=== PATIENT | male | born 1975 | race African-American/Black ===

== ENCOUNTER 2019-10-03 20:45 | Inpatient (IN) | payer OTHER, MEDICAID ==
[~2019-10-03] VITALS: Ht 203.2 cm; Wt 87.1 kg
[~2019-10-03 20:45] MED LIST: BACL-141 MT; CAPT12.53 MT; CARV3.1242 MT
[2019-10-03] MEDS ORDERED: ACETAMINOPHEN 325MG TABLET PO STA (21:31)
[2019-10-03] MEDS ORDERED: LEVOFLOXACIN 750MG PREMIX 150 ML IV ONE (21:45)
[2019-10-03] MEDS ORDERED: SODIUM CHLORIDE 0.9% 1000ML BAG (SEPSIS BOLUS) IV ONE (21:45)
[2019-10-03] MEDS ORDERED: CEFTRIAXONE 1 G PREMIX 50 ML IV ONE (21:45)
[2019-10-03] MEDS ORDERED: METHYLPREDNISOLONE SOD SUCC 125 MG/2 ML VIAL IV NR (23:30)
[2019-10-03 23:41] LABS: BASOPHILS % 0.1 % (0.0-2.0); EOSINOPHILS % 0.1 % (0.0-5.0); HEMATOCRIT. 40.7 % (42.0-52.0); HEMOGLOBIN. 13.8 g/dL (14.0-18.0); LYMPHOCYTES % 18.6 % (20.0-50.0); MEAN CORPUSCULAR HEMOGLOBIN 30.3 pg (28.0-32.0); MEAN CORPUSCULAR VOLUME 89.3 fL (80.0-94.0); MEAN PLATELET VOLUME 10.3 fl (7.4-10.4); MONOCYTES % 12.7 % (2.0-8.0); NEUTROPHILS % 68.5 % (40.0-76.0); PLATELET 93 x1000/uL (130-400); RED BLOOD CELL COUNT 4.56 mill/uL (4.7-6.1); RED CELL DISTRIBUTION WIDTH 13.6 % (11.6-14.6)
[2019-10-03 23:44] LABS: CHLORIDE 102 mEq/L (98-107)
[2019-10-03 23:46] LABS: PROTHROMBIN TIME 10.8 sec (9.6-11.0)
[2019-10-03] MEDS: IPRATROPIUM BROMIDE (0.02%) 0.5MG/2.5ML NEB HHN NR (23:56)
[2019-10-03] MEDS: ALBUTEROL (0.083%) 2.5MG/3ML NEB HHN NR (23:57)
[2019-10-04] MEDS: ALBUTEROL (0.083%) 2.5MG/3ML NEB HHN NR (00:01)
[2019-10-04] MEDS: IPRATROPIUM BROMIDE (0.02%) 0.5MG/2.5ML NEB HHN NR (00:02)
[2019-10-04 00:13] LABS: CLARITY URINE CLEAR (CLEAR); COLOR URINE DARK YELLOW (YELLOW); KETONES URINE 1+ (NEGATIVE); LEUKOCYTE ESTERASE URINE TRACE (NEGATIVE); NITRITE URINE NEGATIVE (NEGATIVE); OCCULT BLOOD URINE NEGATIVE (NEGATIVE); PH URINE 5.5 (4.5-8.0); PROTEIN URINE TRACE (NEGATIVE); SPECIFIC GRAVITY URINE 1.025 (1.005-1.030)
[2019-10-04 11:35] VITALS: BP 110/65
[2019-10-04 12:00] VITALS: BP 110/65
[2019-10-04] MEDS ORDERED: ONDANSETRON HCL 4MG/2ML INJ IV PRN (12:45)
[2019-10-04] MEDS ORDERED: ACETAMINOPHEN 325MG TABLET PO PRN (12:45)
[2019-10-04] MEDS ORDERED: IPRATROPIUM/ALBUTEROL 0.5-3(2.5)MG/3ML NEB HHN PRN (15:30)
[2019-10-04 16:00] VITALS: BP 115/64
[2019-10-04] MEDS: IPRATROPIUM/ALBUTEROL 0.5-3(2.5)MG/3ML NEB HHN SCH ×2 (16:25→20:13)
[2019-10-04] MEDS ORDERED: AMIO100T4 PO (18:36)
[2019-10-04 20:00] VITALS: BP 108/73
[2019-10-04] MEDS: SODIUM CHLORIDE 0.9% 1,000 ML IV SCH (21:44)
[2019-10-05] VITALS: BP 120/71
[2019-10-05] MEDS: IPRATROPIUM/ALBUTEROL 0.5-3(2.5)MG/3ML NEB HHN SCH ×6 (00:02→20:56)
[2019-10-05] MEDS: ACETYLCYSTEINE 100MG/ML 10% VIAL 4ML INH SCH ×3 (00:02→17:26)
[2019-10-05 04:00] VITALS: BP 102/59
[2019-10-05 07:17] LABS: BASOPHILS % 0.1 % (0.0-2.0); HEMATOCRIT. 40.7 % (42.0-52.0); HEMOGLOBIN. 13.6 g/dL (14.0-18.0); LYMPHOCYTES % 9.4 % (20.0-50.0); MEAN CORPUSCULAR HEMOGLOBIN 30.2 pg (28.0-32.0); MEAN CORPUSCULAR VOLUME 90.2 fL (80.0-94.0); MEAN PLATELET VOLUME 10.6 fl (7.4-10.4); NEUTROPHILS % 78.5 % (40.0-76.0); PLATELET 102 x1000/uL (130-400); RED BLOOD CELL COUNT 4.51 mill/uL (4.7-6.1); RED CELL DISTRIBUTION WIDTH 13.4 % (11.6-14.6)
[2019-10-05 07:20] LABS: CHLORIDE 114 mEq/L (98-107)
[2019-10-05 08:00] VITALS: BP 115/64
[2019-10-05 10:30] LABS: PHOSPHORUS 2.7 mg/dL (2.5-4.9)
[2019-10-05 12:00] VITALS: BP 137/72
[2019-10-05] MEDS ORDERED: AMIODARONE HCL 200 MG TABLET PO NR (13:00)
[2019-10-05] MEDS: LEVOFLOXACIN 500MG PREMIX 100 ML IV SCH (13:29)
[2019-10-05] MEDS ORDERED: CAPTOPRIL 12.5MG TABLET GT SCH (14:00)
[2019-10-05 14:39] LABS: BG BASE EXCESS 1.3 mmol/L (-2.0-2.0); BG CARBOXYHEMOGLOBIN 0.6 % (0.5-1.5); BG DEOXYHEMOGLOBIN 13.9 % (0.0-5.0); BG FRACTION INSPIRED OXYGEN 21; BG METHEMOGLOBIN 0.2 % (0.0-1.5); BG OXYHEMOGLOBIN 85.3 % (94.0-97.0); BG PCO2 36.6 mmHg (35.0-45.0); BG PH 7.452 (7.350-7.450); BG SAMPLE SITE RIGHT RADIAL; BG TOTAL HEMOGLOBIN 13.4 g/dL (12.0-18.0); BG VENT MODE ROOM AIR
[2019-10-05] MEDS: BACLOFEN 10MG TABLET GT SCH ×2 (15:15→21:09)
[2019-10-05] MEDS: SODIUM CHLORIDE 0.9% 1,000 ML IV SCH (15:37)
[2019-10-05 16:00] VITALS: BP 112/72
[2019-10-05 20:00] VITALS: BP 101/58
[2019-10-05] MEDS: CARVEDILOL 3.125 MG TABLET GT SCH (21:00)
[2019-10-05] MEDS: AMIODARONE HCL 200 MG TABLET GT SCH (21:10)
[2019-10-06] VITALS: BP 107/68
[2019-10-06] MEDS: IPRATROPIUM/ALBUTEROL 0.5-3(2.5)MG/3ML NEB HHN SCH ×6 (01:20→20:59)
[2019-10-06] MEDS: ACETYLCYSTEINE 100MG/ML 10% VIAL 4ML INH SCH ×3 (01:21→16:23)
[2019-10-06 04:00] VITALS: BP 93/49
[2019-10-06] MEDS: BACLOFEN 10MG TABLET GT SCH ×3 (05:35→21:33)
[2019-10-06 07:01] LABS: BASOPHILS % 0.1 % (0.0-2.0); HEMATOCRIT. 35.6 % (42.0-52.0); LYMPHOCYTES % 28.1 % (20.0-50.0); MEAN CORPUSCULAR HEMOGLOBIN 30.4 pg (28.0-32.0); MEAN CORPUSCULAR VOLUME 90.3 fL (80.0-94.0); MEAN PLATELET VOLUME 10.6 fl (7.4-10.4); MONOCYTES % 12.8 % (2.0-8.0); PLATELET 99 x1000/uL (130-400); RED BLOOD CELL COUNT 3.94 mill/uL (4.7-6.1); RED CELL DISTRIBUTION WIDTH 13.6 % (11.6-14.6)
[2019-10-06 07:31] LABS: CHLORIDE 116 mEq/L (98-107)
[2019-10-06 08:00] VITALS: BP 97/62
[2019-10-06] MEDS: CARVEDILOL 3.125 MG TABLET GT SCH ×2 (08:45→21:29)
[2019-10-06] MEDS: AMIODARONE HCL 200 MG TABLET GT SCH ×2 (08:46→21:29)
[2019-10-06] MEDS: LEVOFLOXACIN 500MG PREMIX 100 ML IV SCH (10:24)
[2019-10-06 12:00] VITALS: BP 114/73
[2019-10-06] MEDS ORDERED: POTASSIUM CHLORIDE 20MEQ/PACKET GT NR (12:45)
[2019-10-06] MEDS ORDERED: IPRA3AMP9 HHN (15:33)
[2019-10-06 15:45] LABS: BG BASE EXCESS 2.5 mmol/L (-2.0-2.0); BG CARBOXYHEMOGLOBIN 0.4 % (0.5-1.5); BG DEOXYHEMOGLOBIN 2.6 % (0.0-5.0); BG HCO3 ACT 26.6 mmol/L (22.0-26.0); BG METHEMOGLOBIN 0.3 % (0.0-1.5); BG OXYGEN SATURATION 97.4 % (92.0-98.5); BG OXYHEMOGLOBIN 96.7 % (94.0-97.0); BG PCO2 39.5 mmHg (35.0-45.0); BG PH 7.446 (7.350-7.450); BG PO2 93.2 mmHg (75.0-100.0); BG SAMPLE SITE LEFT BRACHIAL; BG TOTAL HEMOGLOBIN 12.8 g/dL (12.0-18.0); BG VENT MODE NASAL CANNULA
[2019-10-06 16:00] VITALS: BP 123/76
[2019-10-06] MEDS: SODIUM CHLORIDE 0.9% 1,000 ML IV SCH (16:19)
[2019-10-06] MEDS ORDERED: LACT10SO MT (18:42)
[2019-10-06 20:00] VITALS: BP 126/82
[2019-10-06] MEDS: LACTULOSE 20G/30ML UDC PO SCH (21:29)
[2019-10-07] VITALS (47 sets, daily range): BP systolic 35–139; BP diastolic 15–92
[2019-10-07] MEDS: IPRATROPIUM/ALBUTEROL 0.5-3(2.5)MG/3ML NEB HHN SCH ×6 (00:53→21:17)
[2019-10-07] MEDS: ACETYLCYSTEINE 100MG/ML 10% VIAL 4ML INH SCH ×3 (00:54→17:53)
[2019-10-07] MEDS ORDERED: VANCOMYCIN 1500MG in DEXTROSE 5% WATER 250ML IV SCH ×2 (01:00→20:00)
[2019-10-07] MEDS: SODIUM CHLORIDE 0.9% 1,000 ML IV SCH ×2 (05:11→15:15)
[2019-10-07] MEDS: BACLOFEN 10MG TABLET GT SCH ×3 (05:13→21:25)
[2019-10-07] MEDS: AMIODARONE HCL 200 MG TABLET GT SCH ×2 (08:48→13:07)
[2019-10-07] MEDS: LACTULOSE 20G/30ML UDC PO SCH ×2 (08:54→21:25)
[2019-10-07] MEDS: CARVEDILOL 3.125 MG TABLET GT SCH ×2 (08:55→21:25)
[2019-10-07] MEDS: LEVOFLOXACIN 500MG PREMIX 100 ML IV SCH (09:01)
[2019-10-07] MEDS ORDERED: POTASSIUM CHLORIDE 20MEQ/PACKET PO NR (12:15)
[2019-10-07 13:12] LABS: BG CARBOXYHEMOGLOBIN 0.9 % (0.5-1.5); BG DEOXYHEMOGLOBIN 6.8 % (0.0-5.0); BG FRACTION INSPIRED OXYGEN 32; BG HCO3 ACT 23.5 mmol/L (22.0-26.0); BG METHEMOGLOBIN 0.2 % (0.0-1.5); BG OXYGEN SATURATION 93.1 % (92.0-98.5); BG OXYHEMOGLOBIN 92.1 % (94.0-97.0); BG PCO2 34.8 mmHg (35.0-45.0); BG PH 7.447 (7.350-7.450); BG PO2 60.8 mmHg (75.0-100.0); BG SAMPLE SITE RIGHT RADIAL; BG TOTAL HEMOGLOBIN 14.9 g/dL (12.0-18.0); BG VENT MODE NASAL CANNULA
[2019-10-07] MEDS ORDERED: VANCOMYCIN 1500MG in DEXTROSE 5% WATER 250ML IV NR (14:30)
[2019-10-07] MEDS: PIPERACILLIN/TAZOBACTAM 3.375 G in DEXT 5% WATER 100 ML IV SCH ×2 (16:00→21:25)
[2019-10-07] MEDS ORDERED: GUAIFENESIN/DM 600MG/30MG ER TAB 12HR PO PRN (18:00)
[2019-10-07 20:02] LABS: CHLORIDE 108 mEq/L (98-107)
[2019-10-07 20:06] LABS: BASOPHILS % 0.2 % (0.0-2.0); EOSINOPHILS % 0.5 % (0.0-5.0); HEMATOCRIT. 43.2 % (42.0-52.0); HEMOGLOBIN. 14.2 g/dL (14.0-18.0); LYMPHOCYTES % 18.5 % (20.0-50.0); MEAN CORPUSCULAR VOLUME 91.2 fL (80.0-94.0); MEAN PLATELET VOLUME 10.8 fl (7.4-10.4); MONOCYTES % 12.3 % (2.0-8.0); NEUTROPHILS % 68.5 % (40.0-76.0); PLATELET 127 x1000/uL (130-400); RED BLOOD CELL COUNT 4.73 mill/uL (4.7-6.1)
[2019-10-07] MEDS: ACETAMINOPHEN 325MG TABLET GT PRN (21:36)
[2019-10-08] VITALS (52 sets, daily range): BP systolic 82–139; BP diastolic 25–90
[2019-10-08] MEDS: VANCOMYCIN 1500MG in DEXTROSE 5% WATER 250ML IV SCH ×3 (00:55→17:03)
[2019-10-08] MEDS: IPRATROPIUM/ALBUTEROL 0.5-3(2.5)MG/3ML NEB HHN SCH ×7 (01:01→23:46)
[2019-10-08] MEDS: ACETYLCYSTEINE 100MG/ML 10% VIAL 4ML INH SCH ×4 (01:02→23:47)
[2019-10-08] MEDS: PIPERACILLIN/TAZOBACTAM 3.375 G in DEXT 5% WATER 100 ML IV SCH ×4 (03:59→21:31)
[2019-10-08] MEDS: BACLOFEN 10MG TABLET GT SCH ×3 (05:20→21:26)
[2019-10-08 05:26] LABS: BASOPHILS % 0.1 % (0.0-2.0); EOSINOPHILS % 0.8 % (0.0-5.0); HEMATOCRIT. 39.6 % (42.0-52.0); HEMOGLOBIN. 13.1 g/dL (14.0-18.0); LYMPHOCYTES % 21.1 % (20.0-50.0); MEAN CORPUSCULAR HEMOGLOBIN 30.2 pg (28.0-32.0); MONOCYTES % 12.1 % (2.0-8.0); NEUTROPHILS % 65.9 % (40.0-76.0); PLATELET 134 x1000/uL (130-400); RED BLOOD CELL COUNT 4.35 mill/uL (4.7-6.1); RED CELL DISTRIBUTION WIDTH 13.6 % (11.6-14.6)
[2019-10-08 05:32] LABS: CHLORIDE 108 mEq/L (98-107)
[2019-10-08] MEDS: CARVEDILOL 3.125 MG TABLET GT SCH ×2 (08:40→21:00)
[2019-10-08] MEDS: LACTULOSE 20G/30ML UDC PO SCH ×2 (08:56→21:26)
[2019-10-08] MEDS: AMIODARONE HCL 200 MG TABLET GT SCH (08:56)
[2019-10-08] MEDS: SODIUM CHLORIDE 0.9% 1,000 ML IV SCH ×2 (15:30→23:30)
[2019-10-08] MEDS: GUAIFENESIN/CODEINE 200-20MG/10ML UDC PO PRN ×2 (17:27→23:20)
[2019-10-08] MEDS: HEPARIN 5000 UNITS/ML VIAL SUBCUT SCH (21:27)
[2019-10-08] MEDS: ACETAMINOPHEN 325MG TABLET GT PRN (21:42)
[2019-10-09] VITALS (59 sets, daily range): BP systolic 85–138; BP diastolic 45–103
[2019-10-09] MEDS: VANCOMYCIN 1500MG in DEXTROSE 5% WATER 250ML IV SCH ×2 (00:42→09:00)
[2019-10-09] MEDS: PIPERACILLIN/TAZOBACTAM 3.375 G in DEXT 5% WATER 100 ML IV SCH ×3 (02:47→14:19)
[2019-10-09] MEDS: IPRATROPIUM/ALBUTEROL 0.5-3(2.5)MG/3ML NEB HHN SCH ×3 (04:17→11:33)
[2019-10-09] MEDS: BACLOFEN 10MG TABLET GT SCH ×2 (05:11→14:13)
[2019-10-09] MEDS: GUAIFENESIN/CODEINE 200-20MG/10ML UDC PO PRN ×2 (05:11→14:19)
[2019-10-09 05:29] LABS: CHLORIDE 112 mEq/L (98-107)
[2019-10-09] MEDS: ACETYLCYSTEINE 100MG/ML 10% VIAL 4ML INH SCH (07:45)
[2019-10-09] MEDS ORDERED: POTASSIUM CHLORIDE 20MEQ/PACKET GT NR (08:00)
[2019-10-09] MEDS: AMIODARONE HCL 200 MG TABLET GT SCH (08:53)
[2019-10-09] MEDS: LACTULOSE 20G/30ML UDC PO SCH (08:53)
[2019-10-09] MEDS: CARVEDILOL 3.125 MG TABLET GT SCH (08:53)
[2019-10-09] MEDS: HEPARIN 5000 UNITS/ML VIAL SUBCUT SCH (09:00)
== END 2019-10-09 14:50 | disposition home or self-care (01) | DRG 871 ==
LOC: ER 20:45 → 7WST 10-04 00:42 → EDBEDREQTM 10-04 01:51 → EDBEDREQSVC 10-04 01:51 → EDBEDREQ 10-04 01:51 → EDBEDREQDT 10-04 01:51 → EDBEDREQ 10-04 01:52 → ENRESERV 10-04 10:35 → MICUNO 10-07 14:06
PROVIDERS: ADMIT Family Medicine Adult Medicine; ATTEND Family Medicine Adult Medicine
DX: A41.01 Sepsis due to Methicillin susceptible Staphylococcus aureus (principal); G82.50 Quadriplegia, unspecified; J96.21 Acute and chronic respiratory failure with hypoxia; J15.211 Pneumonia due to Methicillin susceptible Staphylococcus aureus; G93.1 Anoxic brain damage, not elsewhere classified; I42.0 Dilated cardiomyopathy; I47.2 Ventricular tachycardia; E87.3 Alkalosis; I10 Essential (primary) hypertension; E86.0 Dehydration; I11.0 Hypertensive heart disease with heart failure; I25.5 Ischemic cardiomyopathy; J45.909 Unspecified asthma, uncomplicated; R13.10 Dysphagia, unspecified; I50.9 Heart failure, unspecified; R74.0 Nonspecific elevation of levels of transaminase and lactic acid dehydrogenase [LDH]; J20.9 Acute bronchitis, unspecified; Z74.01 Bed confinement status; Z87.820 Personal history of traumatic brain injury; Z93.1 Gastrostomy status; Z93.3 Colostomy status; Z95.810 Presence of automatic (implantable) cardiac defibrillator; Z79.899 Other long term (current) drug therapy; Z86.74 Personal history of sudden cardiac arrest
CPT/HCPCS: 36415; 36600; 71045; 80048; 80202; 81003; 82375; 82805; 83605; 83735; 83880; 84100; 84145; 84484; 87070; 87077; 87804; 93005; 93306; 96365; 96367; 96375; 99285; A6261; J0696; J1644; J1956; J2543; J2930; J3370; J7030; J7060; J7070; J7608; J7611; J7620; A4315

== ENCOUNTER 2022-08-16 13:26 | Inpatient (IN) | payer OTHER, MEDICAID ==
[~2022-08-16] VITALS: Ht 182.9 cm; Wt 99.5 kg
[2022-08-16] VITALS (9 sets, daily range): BP systolic 106–151; BP diastolic 71–90
[~2022-08-16 13:26] MED LIST changes: +AMIO100T4 PO; -CAPT12.53 MT; +IPRA3AMP9 HHN; +LACT10SO3 MT
[2022-08-16] MEDS ORDERED: PROPOFOL 10MG/ML 100ML 100 ML IV STA (13:56)
[2022-08-16] MEDS ORDERED: SODIUM CHLORIDE 0.9% 1000ML BAG (SEPSIS BOLUS) IV ONE (14:00)
[2022-08-16] MEDS ORDERED: VANCOMYCIN 1G PREMIX 200 ML IV SCH (14:00)
[2022-08-16] MEDS ORDERED: PIPERACILLIN/TAZ 3.375G PREMIX 50 ML IV ONE (14:00)
[2022-08-16 14:49] LABS: HEMATOCRIT. 52.3 % (42.0-52.0); HEMOGLOBIN. 17.6 g/dL (14.0-18.0); MEAN CORPUSCULAR HEMOGLOBIN 31.3 pg (28.0-32.0); MEAN CORPUSCULAR VOLUME 93.3 fL (80.0-94.0); MEAN PLATELET VOLUME 10.7 fl (7.4-10.4); PLATELET 118 x1000/uL (130-400); RED CELL DISTRIBUTION WIDTH 13.7 % (11.6-14.6)
[2022-08-16 14:56] LABS: CHLORIDE 100 mEq/L (98-107)
[2022-08-16 15:08] LABS: INR 1.1; PROTHROMBIN TIME 11.7 sec (9.6-11.0)
[2022-08-16 16:29] LABS: CLARITY URINE CLEAR (CLEAR); COLOR URINE YELLOW (YELLOW); KETONES URINE NEGATIVE (NEGATIVE); LEUKOCYTE ESTERASE URINE NEGATIVE (NEGATIVE); NITRITE URINE NEGATIVE (NEGATIVE); OCCULT BLOOD URINE NEGATIVE (NEGATIVE); PROTEIN URINE NEGATIVE (NEGATIVE); SPECIFIC GRAVITY URINE 1.013 (1.005-1.030)
[2022-08-16 16:47] LABS: BG BASE EXCESS -7.1 mmol/L (-2.0-2.0); BG CARBOXYHEMOGLOBIN 0.1 % (0.5-1.5); BG DEOXYHEMOGLOBIN 1.7 % (0.0-5.0); BG METHEMOGLOBIN 0.5 % (0.0-1.5); BG OXYGEN SATURATION 98.3 % (92.0-98.5); BG OXYHEMOGLOBIN 97.7 % (94.0-97.0); BG PCO2 35.6 mmHg (35.0-45.0); BG PH 7.321 (7.350-7.450); BG PO2 108.7 mmHg (75.0-100.0); BG SAMPLE SITE LEFT FEMORAL; BG TOTAL HEMOGLOBIN 18.3 g/dL (12.0-18.0); BG VENT MODE VENT - AC
[2022-08-16 17:29] LABS: PLATELET ESTIMATE DECREASED
[2022-08-16] MEDS: ENOXAPARIN 40MG/0.4ML SYR SUBCUT SCH (21:00)
[2022-08-16] MEDS ORDERED: VANCOMYCIN 1.25GM PMX (XELLIA) 250 ML IV SCH (22:00)
[2022-08-16] MEDS ORDERED: CARV3.1242 GT (22:52)
[2022-08-16] MEDS ORDERED: BACL-141 GT (22:52)
[2022-08-16] MEDS ORDERED: CAPT12.53 GT (22:52)
[2022-08-16] MEDS ORDERED: AMIO100T4 GT (22:52)
[2022-08-16 23:56] LABS: CREATINE KINASE MB FRACTION 7.1 ng/mL (0.5-3.6)
[2022-08-17] VITALS (90 sets, daily range): BP systolic 87–155; BP diastolic 44–95
[2022-08-17] MEDS: PIPERACILLIN/TAZOBACTAM 3.375 G in DEXTROSE 5% WATER 50 ML IV SCH ×4 (02:00→23:08)
[2022-08-17] MEDS: PROPOFOL 10MG/ML 100ML 100 ML IV PRN ×2 (02:36→16:10)
[2022-08-17] MEDS: VANCOMYCIN 1G PREMIX 200 ML IV SCH ×3 (05:04→21:32)
[2022-08-17 05:43] LABS: BASOPHILS % 0.1 % (0.0-2.0); HEMATOCRIT. 51.8 % (42.0-52.0); HEMOGLOBIN. 17.2 g/dL (14.0-18.0); LYMPHOCYTES % 7.7 % (20.0-50.0); MEAN CORPUSCULAR HEMOGLOBIN 31.3 pg (28.0-32.0); MEAN CORPUSCULAR VOLUME 94.1 fL (80.0-94.0); MONOCYTES % 10.6 % (2.0-8.0); NEUTROPHILS % 81.6 % (40.0-76.0); RED BLOOD CELL COUNT 5.51 mill/uL (4.7-6.1); RED CELL DISTRIBUTION WIDTH 13.8 % (11.6-14.6)
[2022-08-17 06:36] LABS: CHLORIDE 102 mEq/L (98-107)
[2022-08-17 06:51] LABS: CREATINE KINASE 259 IU/L (39-308); CREATINE KINASE MB FRACTION 5.9 ng/mL (0.5-3.6); T4 FREE 2.38 ng/dL (0.76-1.46)
[2022-08-17 07:04] LABS: PLATELET 82 x1000/uL (130-400)
[2022-08-17 09:49] LABS: BG BASE EXCESS -1.8 mmol/L (-2.0-2.0); BG CARBOXYHEMOGLOBIN 0.7 % (0.5-1.5); BG DEOXYHEMOGLOBIN 1.9 % (0.0-5.0); BG HCO3 ACT 20.4 mmol/L (22.0-26.0); BG METHEMOGLOBIN 0.4 % (0.0-1.5); BG OXYGEN SATURATION 98.1 % (92.0-98.5); BG PCO2 29.3 mmHg (35.0-45.0); BG PH 7.461 (7.350-7.450); BG PO2 92.2 mmHg (75.0-100.0); BG SAMPLE SITE RIGHT RADIAL; BG TOTAL HEMOGLOBIN 17.4 g/dL (12.0-18.0); BG VENT MODE VENT - AC
[2022-08-17] MEDS: PANTOPRAZOLE SODIUM 40 MG/VIAL IV SCH (10:04)
[2022-08-17] MEDS: KCL 20MEQ/100ML PREMIX 100 ML IV SCH ×2 (10:10→12:15)
[2022-08-17] MEDS: DEXT 5%/0.45% NACL 1000ML 1,000 ML IV SCH ×2 (13:00→20:13)
[2022-08-17] MEDS ORDERED: IOHEXOL-300 100 ML BOTTLE ONE (14:29)
[2022-08-17] MEDS: BACLOFEN 10MG TABLET GT SCH (17:00)
[2022-08-17] MEDS: CARVEDILOL 3.125 MG TABLET GT SCH (21:00)
[2022-08-17] MEDS ORDERED: CAPTOPRIL 12.5MG TABLET GT SCH (21:00)
[2022-08-18] VITALS (87 sets, daily range): BP systolic 78–162; BP diastolic 28–86
[2022-08-18] MEDS: DEXT 5%/0.45% NACL 1000ML 1,000 ML IV SCH ×3 (04:55→20:59)
[2022-08-18] MEDS: VANCOMYCIN 1G PREMIX 200 ML IV SCH (05:02)
[2022-08-18] MEDS: PROPOFOL 10MG/ML 100ML 100 ML IV PRN ×2 (05:15→15:20)
[2022-08-18 05:56] LABS: BASOPHILS % 0.1 % (0.0-2.0); EOSINOPHILS % 0.1 % (0.0-5.0); HEMATOCRIT. 44.9 % (42.0-52.0); HEMOGLOBIN. 15.2 g/dL (14.0-18.0); LYMPHOCYTES % 9.8 % (20.0-50.0); MEAN CORPUSCULAR HEMOGLOBIN 31.3 pg (28.0-32.0); MEAN CORPUSCULAR VOLUME 92.3 fL (80.0-94.0); MEAN PLATELET VOLUME 10.3 fl (7.4-10.4); MONOCYTES % 8.8 % (2.0-8.0); NEUTROPHILS % 81.2 % (40.0-76.0); PLATELET 66 x1000/uL (130-400); RED BLOOD CELL COUNT 4.87 mill/uL (4.7-6.1); RED CELL DISTRIBUTION WIDTH 13.9 % (11.6-14.6)
[2022-08-18] MEDS: PIPERACILLIN/TAZOBACTAM 3.375 G in DEXTROSE 5% WATER 50 ML IV SCH ×3 (06:00→21:05)
[2022-08-18 06:10] LABS: CHLORIDE 101 mEq/L (98-107)
[2022-08-18] MEDS: LISINOPRIL 5MG TABLET PO SCH (09:00)
[2022-08-18 09:26] LABS: BG BASE EXCESS -0.4 mmol/L (-2.0-2.0); BG FRACTION INSPIRED OXYGEN 40; BG HCO3 ACT 22.2 mmol/L (22.0-26.0); BG METHEMOGLOBIN 0.3 % (0.0-1.5); BG OXYGEN SATURATION 95.9 % (92.0-98.5); BG OXYHEMOGLOBIN 94.7 % (94.0-97.0); BG PCO2 31.3 mmHg (35.0-45.0); BG PH 7.469 (7.350-7.450); BG PO2 71.4 mmHg (75.0-100.0); BG SAMPLE SITE RIGHT RADIAL; BG TOTAL HEMOGLOBIN 15.6 g/dL (12.0-18.0); BG VENT MODE VENT - SIMV
[2022-08-18] MEDS: BACLOFEN 10MG TABLET GT SCH ×3 (10:11→16:01)
[2022-08-18] MEDS: PANTOPRAZOLE SODIUM 40 MG/VIAL IV SCH (10:11)
[2022-08-18] MEDS: CARVEDILOL 3.125 MG TABLET GT SCH ×2 (10:12→20:58)
[2022-08-18] MEDS: VANCOMYCIN 1.25GM PMX (XELLIA) 250 ML IV SCH (20:58)
[2022-08-19] VITALS (100 sets, daily range): BP systolic 84–165; BP diastolic 43–122
[2022-08-19] MEDS: PIPERACILLIN/TAZOBACTAM 3.375 G in DEXTROSE 5% WATER 50 ML IV SCH (05:36)
[2022-08-19] MEDS: PROPOFOL 10MG/ML 100ML 100 ML IV PRN ×3 (05:52→20:05)
[2022-08-19 06:52] LABS: BASOPHILS % 0.1 % (0.0-2.0); EOSINOPHILS % 0.7 % (0.0-5.0); HEMATOCRIT. 39.5 % (42.0-52.0); HEMOGLOBIN. 13.3 g/dL (14.0-18.0); LYMPHOCYTES % 7.8 % (20.0-50.0); MEAN CORPUSCULAR HEMOGLOBIN 31.1 pg (28.0-32.0); MEAN CORPUSCULAR VOLUME 92.5 fL (80.0-94.0); MEAN PLATELET VOLUME 11.3 fl (7.4-10.4); MONOCYTES % 5.9 % (2.0-8.0); NEUTROPHILS % 85.5 % (40.0-76.0); PLATELET 57 x1000/uL (130-400); RED BLOOD CELL COUNT 4.27 mill/uL (4.7-6.1); RED CELL DISTRIBUTION WIDTH 13.5 % (11.6-14.6)
[2022-08-19 07:14] LABS: CHLORIDE 105 mEq/L (98-107)
[2022-08-19] MEDS ORDERED: LIDOCAINE HCL 1% 30ML VIAL (10MG/ML) ONE (08:05)
[2022-08-19 08:29] LABS: BG BASE EXCESS -0.1 mmol/L (-2.0-2.0); BG DEOXYHEMOGLOBIN 4.9 % (0.0-5.0); BG FRACTION INSPIRED OXYGEN 40; BG HCO3 ACT 22.6 mmol/L (22.0-26.0); BG METHEMOGLOBIN 0.3 % (0.0-1.5); BG OXYHEMOGLOBIN 93.8 % (94.0-97.0); BG PCO2 31.3 mmHg (35.0-45.0); BG PH 7.476 (7.350-7.450); BG SAMPLE SITE ALINE; BG TOTAL HEMOGLOBIN 13.6 g/dL (12.0-18.0); BG VENT MODE VENT - AC
[2022-08-19] MEDS: CARVEDILOL 3.125 MG TABLET GT SCH ×3 (09:08→21:00)
[2022-08-19] MEDS: BACLOFEN 10MG TABLET GT SCH ×3 (09:08→17:17)
[2022-08-19] MEDS: PANTOPRAZOLE SODIUM 40 MG/VIAL IV SCH (09:09)
[2022-08-19] MEDS: LISINOPRIL 5MG TABLET PO SCH (09:09)
[2022-08-19] MEDS: KCL 20MEQ/100ML PREMIX 100 ML IV SCH ×2 (09:09→11:03)
[2022-08-19] MEDS: VANCOMYCIN 1.25GM PMX (XELLIA) 250 ML IV SCH ×2 (09:09→20:20)
[2022-08-19] MEDS: CEFEPIME 2,000 MG in DEXT 5% WATER 100 ML IV SCH ×2 (10:13→20:20)
[2022-08-19] MEDS: DEXT 5%/0.45% NACL 1000ML 1,000 ML IV SCH (10:14)
[2022-08-19] MEDS: METRONIDAZOLE 500 MG PREMIX 100 ML IV SCH ×2 (10:58→17:17)
[2022-08-19] MEDS: ACETAMINOPHEN 325MG TABLET PO PRN (17:17)
[2022-08-19] MEDS: MICONAZOLE NITRATE 2% OINT 71GM TOP SCH (20:21)
[2022-08-20] VITALS (67 sets, daily range): BP systolic 76–170; BP diastolic 18–97
[2022-08-20] MEDS: DEXT 5%/0.45% NACL 1000ML 1,000 ML IV SCH ×2 (00:21→15:07)
[2022-08-20] MEDS: PROPOFOL 10MG/ML 100ML 100 ML IV PRN ×2 (00:29→04:48)
[2022-08-20] MEDS: METRONIDAZOLE 500 MG PREMIX 100 ML IV SCH ×3 (01:08→17:09)
[2022-08-20] MEDS: ACETAMINOPHEN 325MG TABLET PO PRN ×2 (05:57→12:22)
[2022-08-20 06:15] LABS: CHLORIDE 107 mEq/L (98-107)
[2022-08-20 06:21] LABS: HEMATOCRIT. 36.1 % (42.0-52.0); HEMOGLOBIN. 12.3 g/dL (14.0-18.0); MEAN CORPUSCULAR HEMOGLOBIN 31.5 pg (28.0-32.0); MEAN CORPUSCULAR VOLUME 92.7 fL (80.0-94.0); MEAN PLATELET VOLUME 10.1 fl (7.4-10.4); PHOSPHORUS 1.3 mg/dL (2.5-4.9); PLATELET 54 x1000/uL (130-400); RED CELL DISTRIBUTION WIDTH 13.8 % (11.6-14.6)
[2022-08-20] MEDS: CARVEDILOL 3.125 MG TABLET GT SCH ×2 (08:34→21:25)
[2022-08-20] MEDS: LISINOPRIL 5MG TABLET PO SCH (08:35)
[2022-08-20] MEDS: CEFEPIME 2,000 MG in DEXT 5% WATER 100 ML IV SCH ×2 (08:45→21:25)
[2022-08-20] MEDS: PANTOPRAZOLE SODIUM 40 MG/VIAL IV SCH (08:45)
[2022-08-20] MEDS: BACLOFEN 10MG TABLET GT SCH ×3 (08:45→17:09)
[2022-08-20] MEDS: KCL 20MEQ/100ML PREMIX 100 ML IV SCH ×2 (08:45→10:52)
[2022-08-20] MEDS: VANCOMYCIN 1.25GM PMX (XELLIA) 250 ML IV SCH ×2 (08:45→21:25)
[2022-08-20] MEDS: MICONAZOLE NITRATE 2% OINT 71GM TOP SCH ×2 (08:46→21:26)
[2022-08-20 09:10] LABS: BG BASE EXCESS -1.1 mmol/L (-2.0-2.0); BG CARBOXYHEMOGLOBIN 0.1 % (0.5-1.5); BG DEOXYHEMOGLOBIN 7.1 % (0.0-5.0); BG FRACTION INSPIRED OXYGEN 40; BG HCO3 ACT 21.2 mmol/L (22.0-26.0); BG OXYGEN SATURATION 92.9 % (92.0-98.5); BG OXYHEMOGLOBIN 92.8 % (94.0-97.0); BG PCO2 28.1 mmHg (35.0-45.0); BG PH 7.495 (7.350-7.450); BG PO2 56.1 mmHg (75.0-100.0); BG SAMPLE SITE RIGHT RADIAL; BG TOTAL HEMOGLOBIN 11.7 g/dL (12.0-18.0); BG VENT MODE VENT - APRV
[2022-08-20] MEDS ORDERED: FENTANYL 2500MCG/250ML PMX 250 ML IV ONE ×2 (09:45→19:30)
[2022-08-20] MEDS ORDERED: FENTANYL 2500MCG/250ML PMX 250 ML IV PRN (09:45)
[2022-08-20 10:37] LABS: PLATELET ESTIMATE DECREASED
[2022-08-20] MEDS: ALBUTEROL (0.083%) 2.5MG/3ML NEB HHN SCH ×3 (11:40→19:54)
[2022-08-20] MEDS ORDERED: POTASSIUM PHOS,M-BASIC-D-BASIC 20 MMOL in DEXT 5% WATER 243.3333 ML IV SCH (16:00)
[2022-08-20] MEDS: ACETYLCYSTEINE 200MG/ML 20% VIAL 4ML INH SCH (17:32)
[2022-08-20] MEDS ORDERED: POTASSIUM PHOS,M-BASIC-D-BASIC 20 MMOL in DEXT 5% WATER 243.3333 ML IV NR ×2 (18:00→18:30)
[2022-08-21] VITALS (76 sets, daily range): BP systolic 79–166; BP diastolic 40–84
[2022-08-21] MEDS: ACETYLCYSTEINE 200MG/ML 20% VIAL 4ML INH SCH ×3 (00:07→16:15)
[2022-08-21] MEDS: ALBUTEROL (0.083%) 2.5MG/3ML NEB HHN SCH ×6 (00:07→22:00)
[2022-08-21] MEDS: DEXT 5%/0.45% NACL 1000ML 1,000 ML IV SCH (04:18)
[2022-08-21] MEDS: METRONIDAZOLE 500 MG PREMIX 100 ML IV SCH ×3 (04:18→17:06)
[2022-08-21 05:56] LABS: BASOPHILS % 0.4 % (0.0-2.0); EOSINOPHILS % 1.4 % (0.0-5.0); HEMATOCRIT. 33.6 % (42.0-52.0); HEMOGLOBIN. 11.3 g/dL (14.0-18.0); LYMPHOCYTES % 8.1 % (20.0-50.0); MEAN CORPUSCULAR HEMOGLOBIN 31.2 pg (28.0-32.0); MONOCYTES % 10.5 % (2.0-8.0); NEUTROPHILS % 79.6 % (40.0-76.0); PLATELET 62 x1000/uL (130-400); RED BLOOD CELL COUNT 3.61 mill/uL (4.7-6.1); RED CELL DISTRIBUTION WIDTH 13.8 % (11.6-14.6)
[2022-08-21 06:07] LABS: CHLORIDE 106 mEq/L (98-107)
[2022-08-21] MEDS ORDERED: PROPOFOL 10MG/ML 100ML 100 ML IV PRN (07:45)
[2022-08-21] MEDS ORDERED: POTASSIUM CHLORIDE INJ 40 MEQ in DEXT 5% WATER 250 ML IV ONE (07:45)
[2022-08-21] MEDS: CARVEDILOL 3.125 MG TABLET GT SCH ×2 (08:12→20:47)
[2022-08-21] MEDS: LISINOPRIL 5MG TABLET PO SCH (08:12)
[2022-08-21] MEDS: BACLOFEN 10MG TABLET GT SCH ×3 (08:12→17:06)
[2022-08-21 08:19] LABS: BG CARBOXYHEMOGLOBIN 1.1 % (0.5-1.5); BG DEOXYHEMOGLOBIN 12.4 % (0.0-5.0); BG FRACTION INSPIRED OXYGEN 40; BG HCO3 ACT 21.3 mmol/L (22.0-26.0); BG METHEMOGLOBIN 0.3 % (0.0-1.5); BG OXYGEN SATURATION 87.4 % (92.0-98.5); BG OXYHEMOGLOBIN 86.2 % (94.0-97.0); BG PCO2 35.9 mmHg (35.0-45.0); BG PH 7.392 (7.350-7.450); BG PO2 47.4 mmHg (75.0-100.0); BG SAMPLE SITE RIGHT RADIAL; BG TOTAL HEMOGLOBIN 12.2 g/dL (12.0-18.0); BG TOTAL RESPIRATORY RATE 35 b/min; BG VENT MODE VENT - AC
[2022-08-21] MEDS: CEFEPIME 2,000 MG in DEXT 5% WATER 100 ML IV SCH ×2 (08:35→20:46)
[2022-08-21] MEDS: KCL 20MEQ/100ML PREMIX 100 ML IV SCH ×2 (08:35→12:24)
[2022-08-21] MEDS: VANCOMYCIN 1.25GM PMX (XELLIA) 250 ML IV SCH (08:35)
[2022-08-21] MEDS: ACETAMINOPHEN 325MG TABLET PO PRN ×3 (08:35→22:12)
[2022-08-21] MEDS: PANTOPRAZOLE SODIUM 40 MG/VIAL IV SCH (08:35)
[2022-08-21] MEDS: MICONAZOLE NITRATE 2% OINT 71GM TOP SCH ×2 (08:36→22:35)
[2022-08-21] MEDS: FENTANYL CITRATE/PF 2,500 MCG in SODIUM CHLORIDE 0.9% 200 ML IV PRN (08:39)
[2022-08-21] MEDS ORDERED: FUROSEMIDE 40MG/4ML VIAL IVP NR ×2 (09:45→20:15)
[2022-08-21 09:54] LABS: INR 1.3; PROTHROMBIN TIME 13.4 sec (9.6-11.0)
[2022-08-21] MEDS: NOREPINEPHRINE 8 MG in DEXT 5% WATER 242 ML IV PRN ×2 (10:48→18:26)
[2022-08-21] MEDS: DEXT 5%/0.45% NACL KCL 20MEQ/L 1,000 ML IV SCH (11:17)
[2022-08-21] MEDS ORDERED: LORAZEPAM 2MG/ML CPJ IV NR (11:45)
[2022-08-21 12:46] LABS: BG BASE EXCESS -2.4 mmol/L (-2.0-2.0); BG CARBOXYHEMOGLOBIN 0.6 % (0.5-1.5); BG FRACTION INSPIRED OXYGEN 100; BG HCO3 ACT 22.1 mmol/L (22.0-26.0); BG METHEMOGLOBIN 0.2 % (0.0-1.5); BG OXYGEN SATURATION 89.9 % (92.0-98.5); BG OXYHEMOGLOBIN 89.2 % (94.0-97.0); BG PCO2 37.5 mmHg (35.0-45.0); BG PH 7.389 (7.350-7.450); BG PO2 53.3 mmHg (75.0-100.0); BG SAMPLE SITE RIGHT RADIAL; BG TOTAL HEMOGLOBIN 11.9 g/dL (12.0-18.0); BG TOTAL RESPIRATORY RATE 40 b/min; BG VENT MODE VENT - AC
[2022-08-21 13:12] LABS: PHOSPHORUS 1.4 mg/dL (2.5-4.9)
[2022-08-21] MEDS: MIDAZOLAM HCL 100 MG in SODIUM CHLORIDE 0.9% 80 ML IV PRN (13:29)
[2022-08-21 17:29] LABS: CHLORIDE 104 mEq/L (98-107)
[2022-08-21] MEDS: METHYLPREDNISOLONE SOD SUCC 40 MG/ML VIAL IV SCH (20:47)
[2022-08-21] MEDS ORDERED: POTASSIUM CHLORIDE INJ 40 MEQ in DEXT 5% WATER 250 ML IV NR (21:30)
[2022-08-21] MEDS ORDERED: VANCOMYCIN 1G PREMIX 200 ML IV SCH (22:00)
[2022-08-21 23:03] LABS: BG BASE EXCESS -2.8 mmol/L (-2.0-2.0); BG CARBOXYHEMOGLOBIN 0.7 % (0.5-1.5); BG DEOXYHEMOGLOBIN 6.7 % (0.0-5.0); BG FRACTION INSPIRED OXYGEN 100; BG HCO3 ACT 21.5 mmol/L (22.0-26.0); BG METHEMOGLOBIN 0.2 % (0.0-1.5); BG OXYGEN SATURATION 93.2 % (92.0-98.5); BG OXYHEMOGLOBIN 92.4 % (94.0-97.0); BG PCO2 35.8 mmHg (35.0-45.0); BG PH 7.396 (7.350-7.450); BG SAMPLE SITE LEFT RADIAL; BG TOTAL HEMOGLOBIN 13.7 g/dL (12.0-18.0); BG TOTAL RESPIRATORY RATE 44 b/min; BG VENT MODE VENT - AC
[2022-08-22] VITALS (97 sets, daily range): BP systolic 77–148; BP diastolic 45–99
[2022-08-22] MEDS: DEXT 5%/0.45% NACL KCL 20MEQ/L 1,000 ML IV SCH ×2 (01:05→20:01)
[2022-08-22] MEDS: FENTANYL CITRATE/PF 2,500 MCG in SODIUM CHLORIDE 0.9% 200 ML IV PRN ×2 (01:06→16:46)
[2022-08-22] MEDS: ACETYLCYSTEINE 200MG/ML 20% VIAL 4ML INH SCH ×3 (01:10→16:51)
[2022-08-22] MEDS: METRONIDAZOLE 500 MG PREMIX 100 ML IV SCH ×3 (02:19→17:59)
[2022-08-22] MEDS: NOREPINEPHRINE 8 MG in DEXT 5% WATER 242 ML IV PRN ×2 (02:20→21:14)
[2022-08-22] MEDS: METHYLPREDNISOLONE SOD SUCC 40 MG/ML VIAL IV SCH ×3 (04:10→20:01)
[2022-08-22] MEDS: ALBUTEROL (0.083%) 2.5MG/3ML NEB HHN SCH ×5 (05:02→19:59)
[2022-08-22 05:56] LABS: HEMATOCRIT. 40.9 % (42.0-52.0); HEMOGLOBIN. 13.4 g/dL (14.0-18.0); MEAN CORPUSCULAR VOLUME 94.5 fL (80.0-94.0); MEAN PLATELET VOLUME 10.1 fl (7.4-10.4); PLATELET 52 x1000/uL (130-400); RED BLOOD CELL COUNT 4.32 mill/uL (4.7-6.1); RED CELL DISTRIBUTION WIDTH 14.2 % (11.6-14.6)
[2022-08-22 06:07] LABS: CHLORIDE 105 mEq/L (98-107)
[2022-08-22] MEDS: CARVEDILOL 3.125 MG TABLET GT SCH ×2 (08:24→20:03)
[2022-08-22] MEDS: LISINOPRIL 5MG TABLET PO SCH (08:24)
[2022-08-22] MEDS ORDERED: POTASSIUM PHOS,M-BASIC-D-BASIC 20 MMOL in DEXT 5% WATER 243.3333 ML IV NR (08:30)
[2022-08-22 08:31] LABS: BG BASE EXCESS 0.4 mmol/L (-2.0-2.0); BG CARBOXYHEMOGLOBIN 0.8 % (0.5-1.5); BG DEOXYHEMOGLOBIN 0.5 % (0.0-5.0); BG FRACTION INSPIRED OXYGEN 100; BG HCO3 ACT 24.7 mmol/L (22.0-26.0); BG METHEMOGLOBIN 0.4 % (0.0-1.5); BG OXYGEN SATURATION 99.5 % (92.0-98.5); BG OXYHEMOGLOBIN 98.3 % (94.0-97.0); BG SAMPLE SITE LEFT BRACHIAL; BG TOTAL HEMOGLOBIN 13.3 g/dL (12.0-18.0); BG TOTAL RESPIRATORY RATE 22 b/min; BG VENT MODE VENT - AC
[2022-08-22 08:33] LABS: PLATELET ESTIMATE MARKEDLY DECREASED
[2022-08-22] MEDS: CEFEPIME 2,000 MG in DEXT 5% WATER 100 ML IV SCH ×2 (09:03→20:01)
[2022-08-22] MEDS: PANTOPRAZOLE SODIUM 40 MG/VIAL IV SCH (09:03)
[2022-08-22] MEDS: MICONAZOLE NITRATE 2% OINT 71GM TOP SCH ×2 (09:04→20:02)
[2022-08-22] MEDS: BACLOFEN 10MG TABLET GT SCH ×3 (09:04→17:59)
[2022-08-22] MEDS ORDERED: SODIUM PHOS M BASIC D BASIC IV SCH (11:00)
[2022-08-22] MEDS ORDERED: WATER IV SCH (11:00)
[2022-08-22] MEDS ORDERED: DEXT IV SCH (11:00)
[2022-08-22] MEDS: MIDAZOLAM HCL 100 MG in SODIUM CHLORIDE 0.9% 80 ML IV PRN (12:01)
[2022-08-22] MEDS ORDERED: FUROSEMIDE 40MG/4ML VIAL IVP NR (12:30)
[2022-08-23] VITALS (99 sets, daily range): BP systolic 81–126; BP diastolic 46–71
[2022-08-23] MEDS: ALBUTEROL (0.083%) 2.5MG/3ML NEB HHN SCH ×7 (00:01→23:46)
[2022-08-23] MEDS: ACETYLCYSTEINE 200MG/ML 20% VIAL 4ML INH SCH ×4 (00:02→23:46)
[2022-08-23] MEDS: METRONIDAZOLE 500 MG PREMIX 100 ML IV SCH ×3 (02:09→17:41)
[2022-08-23] MEDS: METHYLPREDNISOLONE SOD SUCC 40 MG/ML VIAL IV SCH ×3 (04:18→20:10)
[2022-08-23] MEDS: FENTANYL CITRATE/PF 2,500 MCG in SODIUM CHLORIDE 0.9% 200 ML IV PRN ×2 (05:51→16:30)
[2022-08-23 06:53] LABS: CHLORIDE 103 mEq/L (98-107)
[2022-08-23 07:04] LABS: PHOSPHORUS 1.6 mg/dL (2.5-4.9)
[2022-08-23] MEDS ORDERED: WATER IV ONE (08:45)
[2022-08-23] MEDS ORDERED: DEXT 5% IV ONE (08:45)
[2022-08-23] MEDS ORDERED: POTASSIUM PHOS M BASIC D BASIC IV ONE (08:45)
[2022-08-23] MEDS: PANTOPRAZOLE SODIUM 40 MG/VIAL IV SCH (08:46)
[2022-08-23] MEDS: LISINOPRIL 5MG TABLET PO SCH (08:47)
[2022-08-23] MEDS: MICONAZOLE NITRATE 2% OINT 71GM TOP SCH ×2 (08:48→21:27)
[2022-08-23] MEDS: BACLOFEN 10MG TABLET GT SCH ×3 (08:49→17:41)
[2022-08-23] MEDS: CEFEPIME 2,000 MG in DEXT 5% WATER 100 ML IV SCH ×2 (08:49→21:27)
[2022-08-23] MEDS: CARVEDILOL 3.125 MG TABLET GT SCH ×2 (08:49→21:00)
[2022-08-23] MEDS ORDERED: POTASSIUM PHOS,M-BASIC-D-BASIC 30 MMOL in DEXT 5% WATER 500 ML IV NR (10:00)
[2022-08-23 10:18] LABS: BG BASE EXCESS 1.8 mmol/L (-2.0-2.0); BG CARBOXYHEMOGLOBIN 0.2 % (0.5-1.5); BG DEOXYHEMOGLOBIN 0.7 % (0.0-5.0); BG FRACTION INSPIRED OXYGEN 90; BG HCO3 ACT 25.5 mmol/L (22.0-26.0); BG METHEMOGLOBIN 0.3 % (0.0-1.5); BG OXYGEN SATURATION 99.3 % (92.0-98.5); BG OXYHEMOGLOBIN 98.8 % (94.0-97.0); BG PCO2 36.9 mmHg (35.0-45.0); BG PH 7.458 (7.350-7.450); BG PO2 192.9 mmHg (75.0-100.0); BG SAMPLE SITE LEFT BRACHIAL; BG TOTAL HEMOGLOBIN 11.3 g/dL (12.0-18.0); BG VENT MODE VENT - AC
[2022-08-23 10:33] LABS: HEMATOCRIT. 31.6 % (42.0-52.0); HEMOGLOBIN. 10.6 g/dL (14.0-18.0); MEAN CORPUSCULAR VOLUME 92.4 fL (80.0-94.0); MEAN PLATELET VOLUME 11.3 fl (7.4-10.4); PLATELET 74 x1000/uL (130-400); RED BLOOD CELL COUNT 3.42 mill/uL (4.7-6.1); RED CELL DISTRIBUTION WIDTH 13.8 % (11.6-14.6)
[2022-08-23 12:57] LABS: PLATELET ESTIMATE DECREASED
[2022-08-23] MEDS: DEXT 5%/0.45% NACL KCL 20MEQ/L 1,000 ML IV SCH (16:18)
[2022-08-23] MEDS: MIDAZOLAM HCL 100 MG in SODIUM CHLORIDE 0.9% 80 ML IV PRN (16:27)
[2022-08-23] MEDS ORDERED: VANCOMYCIN 1,750 MG in DEXT 5% WATER 500 ML IV NR (20:00)
[2022-08-24] VITALS (94 sets, daily range): BP systolic 91–135; BP diastolic 43–80
[2022-08-24] MEDS: METRONIDAZOLE 500 MG PREMIX 100 ML IV SCH ×3 (02:45→17:34)
[2022-08-24] MEDS: ALBUTEROL (0.083%) 2.5MG/3ML NEB HHN SCH ×5 (03:18→20:04)
[2022-08-24] MEDS: METHYLPREDNISOLONE SOD SUCC 40 MG/ML VIAL IV SCH ×3 (04:36→20:15)
[2022-08-24 04:44] LABS: CHLORIDE 102 mEq/L (98-107)
[2022-08-24 04:47] LABS: HEMATOCRIT 29.7 % (42.0-52.0); HEMOGLOBIN 9.9 g/dL (14.0-18.0); MEAN CORPUSCULAR HEMOGLOBIN 30.8 pg (28.0-32.0); MEAN CORPUSCULAR VOLUME 92.7 fL (80.0-94.0); PLATELET 76 x1000/uL (130-400); RED CELL DISTRIBUTION WIDTH 14.2 % (11.6-14.6)
[2022-08-24 04:55] LABS: PHOSPHORUS 1.2 mg/dL (2.5-4.9)
[2022-08-24] MEDS: ACETYLCYSTEINE 200MG/ML 20% VIAL 4ML INH SCH ×2 (07:58→15:55)
[2022-08-24] MEDS: BACLOFEN 10MG TABLET GT SCH ×3 (08:08→17:34)
[2022-08-24] MEDS: LISINOPRIL 5MG TABLET PO SCH (08:09)
[2022-08-24] MEDS: PANTOPRAZOLE SODIUM 40 MG/VIAL IV SCH (08:09)
[2022-08-24] MEDS: CEFEPIME 2,000 MG in DEXT 5% WATER 100 ML IV SCH ×2 (08:09→21:43)
[2022-08-24] MEDS: MICONAZOLE NITRATE 2% OINT 71GM TOP SCH ×2 (08:10→21:44)
[2022-08-24] MEDS: CARVEDILOL 3.125 MG TABLET GT SCH ×2 (08:10→21:00)
[2022-08-24 08:54] LABS: BG CARBOXYHEMOGLOBIN 0.1 % (0.5-1.5); BG DEOXYHEMOGLOBIN 0.9 % (0.0-5.0); BG FRACTION INSPIRED OXYGEN 80; BG HCO3 ACT 26.9 mmol/L (22.0-26.0); BG METHEMOGLOBIN 0.3 % (0.0-1.5); BG OXYGEN SATURATION 99.1 % (92.0-98.5); BG OXYHEMOGLOBIN 98.7 % (94.0-97.0); BG PCO2 43.3 mmHg (35.0-45.0); BG PH 7.411 (7.350-7.450); BG PO2 186.2 mmHg (75.0-100.0); BG SAMPLE SITE RIGHT RADIAL; BG TOTAL HEMOGLOBIN 11.4 g/dL (12.0-18.0); BG VENT MODE VENT - AC
[2022-08-24] MEDS: VANCOMYCIN 1GM PMX (XELLIA) 200 ML IV SCH ×2 (09:34→20:18)
[2022-08-24] MEDS: FENTANYL CITRATE/PF 2,500 MCG in SODIUM CHLORIDE 0.9% 200 ML IV PRN (09:35)
[2022-08-24] MEDS: DEXT 5%/0.45% NACL KCL 20MEQ/L 1,000 ML IV SCH (12:49)
[2022-08-24] MEDS ORDERED: SODIUM PHOS,M-BASIC-D-BASIC 30 MM in DEXT 5% WATER 500 ML IV NR (16:00)
[2022-08-24] MEDS: NOREPINEPHRINE 8 MG in DEXT 5% WATER 242 ML IV PRN (17:40)
[2022-08-25] VITALS (94 sets, daily range): BP systolic 92–142; BP diastolic 46–78
[2022-08-25] MEDS: ACETYLCYSTEINE 200MG/ML 20% VIAL 4ML INH SCH ×3 (00:27→14:00)
[2022-08-25] MEDS: ALBUTEROL (0.083%) 2.5MG/3ML NEB HHN SCH ×6 (00:28→20:52)
[2022-08-25] MEDS: MIDAZOLAM HCL 100 MG in SODIUM CHLORIDE 0.9% 80 ML IV PRN (02:01)
[2022-08-25] MEDS: METHYLPREDNISOLONE SOD SUCC 40 MG/ML VIAL IV SCH ×3 (04:59→21:30)
[2022-08-25 05:27] LABS: HEMATOCRIT. 29.5 % (42.0-52.0); MEAN CORPUSCULAR HEMOGLOBIN 30.8 pg (28.0-32.0); MEAN PLATELET VOLUME 10.2 fl (7.4-10.4); PLATELET 85 x1000/uL (130-400); RED BLOOD CELL COUNT 3.24 mill/uL (4.7-6.1); RED CELL DISTRIBUTION WIDTH 13.8 % (11.6-14.6)
[2022-08-25] MEDS: FENTANYL CITRATE/PF 2,500 MCG in SODIUM CHLORIDE 0.9% 200 ML IV PRN (05:29)
[2022-08-25 05:34] LABS: CHLORIDE 103 mEq/L (98-107)
[2022-08-25 05:59] LABS: PHOSPHORUS 1.8 mg/dL (2.5-4.9)
[2022-08-25] MEDS: PANTOPRAZOLE SODIUM 40 MG/VIAL IV SCH (08:37)
[2022-08-25] MEDS: DEXT 5%/0.45% NACL KCL 20MEQ/L 1,000 ML IV SCH (08:37)
[2022-08-25] MEDS: MICONAZOLE NITRATE 2% OINT 71GM TOP SCH ×2 (08:38→21:31)
[2022-08-25] MEDS: CARVEDILOL 3.125 MG TABLET GT SCH ×2 (08:39→21:30)
[2022-08-25] MEDS: BACLOFEN 10MG TABLET GT SCH ×3 (08:39→17:24)
[2022-08-25] MEDS: LISINOPRIL 5MG TABLET PO SCH (08:40)
[2022-08-25] MEDS ORDERED: VANCOMYCIN 1G PREMIX 200 ML IV SCH (09:00)
[2022-08-25 09:14] LABS: BG BASE EXCESS 3.5 mmol/L (-2.0-2.0); BG CARBOXYHEMOGLOBIN 0.2 % (0.5-1.5); BG DEOXYHEMOGLOBIN 1.7 % (0.0-5.0); BG FRACTION INSPIRED OXYGEN 40; BG HCO3 ACT 26.5 mmol/L (22.0-26.0); BG METHEMOGLOBIN 0.2 % (0.0-1.5); BG OXYGEN SATURATION 98.3 % (92.0-98.5); BG OXYHEMOGLOBIN 97.9 % (94.0-97.0); BG PCO2 34.6 mmHg (35.0-45.0); BG PH 7.502 (7.350-7.450); BG PO2 106.5 mmHg (75.0-100.0); BG SAMPLE SITE RIGHT RADIAL; BG TOTAL HEMOGLOBIN 11.3 g/dL (12.0-18.0); BG TOTAL RESPIRATORY RATE 10 b/min; BG VENT MODE VENT - AC
[2022-08-25] MEDS ORDERED: POTASSIUM PHOS,M-BASIC-D-BASIC 20 MMOL in DEXT 5% WATER 243.3333 ML IV NR (10:00)
[2022-08-25 10:43] LABS: PLATELET ESTIMATE DECREASED
[2022-08-25] MEDS ORDERED: DIATR MEGLU/DIATRIZOATE SOLN 30ML PEG NR (13:00)
[2022-08-25] MEDS: VANCOMYCIN 1G PREMIX 200 ML IV SCH (15:24)
[2022-08-25] MEDS: METOCLOPRAMIDE HCL 10MG/2ML VIAL IV SCH (17:24)
[2022-08-25 21:10] LABS: FERRITIN 693 ng/mL (22-322)
[2022-08-25 21:18] LABS: VITAMIN B12 SERUM >2000 pg/mL pg/mL (211-911)
[2022-08-26] VITALS (55 sets, daily range): BP systolic 97–145; BP diastolic 54–86
[2022-08-26] MEDS: METOCLOPRAMIDE HCL 10MG/2ML VIAL IV SCH ×4 (00:26→17:41)
[2022-08-26] MEDS: ALBUTEROL (0.083%) 2.5MG/3ML NEB HHN SCH ×6 (00:56→20:55)
[2022-08-26] MEDS: VANCOMYCIN 1G PREMIX 200 ML IV SCH (04:32)
[2022-08-26] MEDS: DEXT 5%/0.45% NACL KCL 20MEQ/L 1,000 ML IV SCH (04:32)
[2022-08-26] MEDS: METHYLPREDNISOLONE SOD SUCC 40 MG/ML VIAL IV SCH ×2 (04:32→13:00)
[2022-08-26 06:06] LABS: HEMATOCRIT. 29.7 % (42.0-52.0); HEMOGLOBIN. 10.1 g/dL (14.0-18.0); MEAN CORPUSCULAR HEMOGLOBIN 30.9 pg (28.0-32.0); MEAN CORPUSCULAR VOLUME 91.2 fL (80.0-94.0); PLATELET 100 x1000/uL (130-400); RED BLOOD CELL COUNT 3.26 mill/uL (4.7-6.1); RED CELL DISTRIBUTION WIDTH 13.6 % (11.6-14.6)
[2022-08-26 06:21] LABS: CHLORIDE 104 mEq/L (98-107)
[2022-08-26 06:40] LABS: PHOSPHORUS 1.9 mg/dL (2.5-4.9)
[2022-08-26 07:25] LABS: NUCLEATED RED BLOOD CELLS 1 /100 WBC; PLATELET ESTIMATE DECREASED
[2022-08-26 08:15] LABS: BG BASE EXCESS 10.4 mmol/L (-2.0-2.0); BG CARBOXYHEMOGLOBIN 0.3 % (0.5-1.5); BG DEOXYHEMOGLOBIN 3.7 % (0.0-5.0); BG FRACTION INSPIRED OXYGEN 60; BG HCO3 ACT 33.6 mmol/L (22.0-26.0); BG METHEMOGLOBIN 0.3 % (0.0-1.5); BG OXYGEN SATURATION 96.3 % (92.0-98.5); BG OXYHEMOGLOBIN 95.7 % (94.0-97.0); BG PCO2 39.5 mmHg (35.0-45.0); BG PH 7.548 (7.350-7.450); BG PO2 78.6 mmHg (75.0-100.0); BG SAMPLE SITE RIGHT RADIAL; BG TOTAL HEMOGLOBIN 11.5 g/dL (12.0-18.0); BG TOTAL RESPIRATORY RATE 20 b/min; BG VENT MODE VENT - AC
[2022-08-26] MEDS: CARVEDILOL 3.125 MG TABLET GT SCH ×2 (08:48→22:12)
[2022-08-26] MEDS: MICONAZOLE NITRATE 2% OINT 71GM TOP SCH ×2 (08:49→22:13)
[2022-08-26] MEDS: LISINOPRIL 5MG TABLET PO SCH (08:49)
[2022-08-26] MEDS: BACLOFEN 10MG TABLET GT SCH ×3 (08:49→17:41)
[2022-08-26] MEDS: NEOMY SULF/BACITRAC ZN/POLY OINT 28GM TOP SCH ×2 (08:49→22:12)
[2022-08-26] MEDS: PANTOPRAZOLE SODIUM 40 MG/VIAL IV SCH (08:49)
[2022-08-26] MEDS ORDERED: FUROSEMIDE 40MG/4ML VIAL IVP NR (09:30)
[2022-08-26] MEDS: METRONIDAZOLE 500 MG PREMIX 100 ML IV SCH ×2 (10:30→17:42)
[2022-08-26] MEDS ORDERED: POTASSIUM PHOS,M-BASIC-D-BASIC 20 MMOL in DEXT 5% WATER 243.3333 ML IV NR (10:30)
[2022-08-26] MEDS: LEVOFLOXACIN 500MG PREMIX 100 ML IV SCH (11:33)
[2022-08-26] MEDS ORDERED: ACETAZOLAMIDE 250MG TABLET PO NR (15:00)
[2022-08-26] MEDS: ENOXAPARIN 40MG/0.4ML SYR SUBCUT SCH (22:12)
[2022-08-27] VITALS (81 sets, daily range): BP systolic 101–153; BP diastolic 53–84
[2022-08-27] MEDS: METOCLOPRAMIDE HCL 10MG/2ML VIAL IV SCH ×4 (00:19→17:48)
[2022-08-27] MEDS: DEXT 5%/0.45% NACL KCL 20MEQ/L 1,000 ML IV SCH (00:19)
[2022-08-27] MEDS: ALBUTEROL (0.083%) 2.5MG/3ML NEB HHN SCH ×6 (00:44→20:57)
[2022-08-27] MEDS: METRONIDAZOLE 500 MG PREMIX 100 ML IV SCH ×3 (02:01→17:48)
[2022-08-27] MEDS: METHYLPREDNISOLONE SOD SUCC 40 MG/ML VIAL IV SCH (05:13)
[2022-08-27 05:48] LABS: HEMATOCRIT. 34.2 % (42.0-52.0); HEMOGLOBIN. 11.3 g/dL (14.0-18.0); MEAN CORPUSCULAR HEMOGLOBIN 30.4 pg (28.0-32.0); MEAN CORPUSCULAR VOLUME 91.5 fL (80.0-94.0); MEAN PLATELET VOLUME 10.2 fl (7.4-10.4); PLATELET 118 x1000/uL (130-400); RED BLOOD CELL COUNT 3.74 mill/uL (4.7-6.1); RED CELL DISTRIBUTION WIDTH 14.2 % (11.6-14.6)
[2022-08-27 06:10] LABS: CHLORIDE 98 mEq/L (98-107)
[2022-08-27 07:57] LABS: NUCLEATED RED BLOOD CELLS 1 /100 WBC; PLATELET ESTIMATE SLIGHTLY DECREASED
[2022-08-27 08:49] LABS: BG BASE EXCESS 3.3 mmol/L (-2.0-2.0); BG CARBOXYHEMOGLOBIN 0.3 % (0.5-1.5); BG DEOXYHEMOGLOBIN 1.3 % (0.0-5.0); BG FRACTION INSPIRED OXYGEN 60; BG HCO3 ACT 26.2 mmol/L (22.0-26.0); BG METHEMOGLOBIN 0.3 % (0.0-1.5); BG OXYGEN SATURATION 98.7 % (92.0-98.5); BG OXYHEMOGLOBIN 98.1 % (94.0-97.0); BG PCO2 34.1 mmHg (35.0-45.0); BG PH 7.503 (7.350-7.450); BG PO2 145.8 mmHg (75.0-100.0); BG SAMPLE SITE RIGHT RADIAL; BG TOTAL HEMOGLOBIN 11.9 g/dL (12.0-18.0); BG VENT MODE VENT - AC
[2022-08-27] MEDS: LISINOPRIL 5MG TABLET PO SCH (08:55)
[2022-08-27] MEDS: CARVEDILOL 3.125 MG TABLET GT SCH ×2 (08:55→21:00)
[2022-08-27] MEDS: BACLOFEN 10MG TABLET GT SCH ×3 (09:18→17:45)
[2022-08-27] MEDS: PANTOPRAZOLE SODIUM 40 MG/VIAL IV SCH (09:18)
[2022-08-27] MEDS: NEOMY SULF/BACITRAC ZN/POLY OINT 28GM TOP SCH ×2 (09:18→20:54)
[2022-08-27] MEDS: MICONAZOLE NITRATE 2% OINT 71GM TOP SCH ×2 (09:19→20:54)
[2022-08-27] MEDS ORDERED: FUROSEMIDE 40MG/4ML VIAL IVP NR (10:15)
[2022-08-27] MEDS: LEVOFLOXACIN 500MG PREMIX 100 ML IV SCH (11:00)
[2022-08-27 11:01] LABS: BG BASE EXCESS 5.4 mmol/L (-2.0-2.0); BG CARBOXYHEMOGLOBIN 0.6 % (0.5-1.5); BG DEOXYHEMOGLOBIN 4.9 % (0.0-5.0); BG FRACTION INSPIRED OXYGEN 40; BG HCO3 ACT 28.6 mmol/L (22.0-26.0); BG METHEMOGLOBIN 0.4 % (0.0-1.5); BG OXYGEN SATURATION 95.1 % (92.0-98.5); BG OXYHEMOGLOBIN 94.1 % (94.0-97.0); BG PH 7.506 (7.350-7.450); BG PO2 66.8 mmHg (75.0-100.0); BG SAMPLE SITE RIGHT RADIAL; BG TOTAL HEMOGLOBIN 12.3 g/dL (12.0-18.0); BG VENT MODE VENT - CPAP
[2022-08-27 13:59] LABS: PHOSPHORUS 1.9 mg/dL (2.5-4.9)
[2022-08-27] MEDS: ENOXAPARIN 40MG/0.4ML SYR SUBCUT SCH (20:54)
[2022-08-28] VITALS (24 sets, daily range): BP systolic 107–132; BP diastolic 55–85
[2022-08-28] MEDS: METOCLOPRAMIDE HCL 10MG/2ML VIAL IV SCH ×4 (01:02→17:22)
[2022-08-28] MEDS: METRONIDAZOLE 500 MG PREMIX 100 ML IV SCH ×3 (01:03→17:24)
[2022-08-28] MEDS: ALBUTEROL (0.083%) 2.5MG/3ML NEB HHN SCH ×6 (01:24→20:09)
[2022-08-28] MEDS: ACETYLCYSTEINE 200MG/ML 20% VIAL 4ML INH SCH ×3 (01:24→16:56)
[2022-08-28] MEDS: METHYLPREDNISOLONE SOD SUCC 40 MG/ML VIAL IV SCH (05:56)
[2022-08-28 05:58] LABS: HEMATOCRIT. 38.5 % (42.0-52.0); MEAN CORPUSCULAR HEMOGLOBIN 30.9 pg (28.0-32.0); MEAN CORPUSCULAR VOLUME 91.9 fL (80.0-94.0); MEAN PLATELET VOLUME 10.4 fl (7.4-10.4); PLATELET 124 x1000/uL (130-400); RED BLOOD CELL COUNT 4.19 mill/uL (4.7-6.1); RED CELL DISTRIBUTION WIDTH 13.6 % (11.6-14.6)
[2022-08-28 06:00] LABS: CHLORIDE 98 mEq/L (98-107)
[2022-08-28 06:08] LABS: PHOSPHORUS 2.3 mg/dL (2.5-4.9)
[2022-08-28 07:02] LABS: NUCLEATED RED BLOOD CELLS 1 /100 WBC; PLATELET ESTIMATE SLIGHTLY DECREASED
[2022-08-28] MEDS ORDERED: SODIUM PHOS,M-BASIC-D-BASIC 20 MM in DEXT 5% WATER 243.3333 ML IV NR (08:30)
[2022-08-28] MEDS ORDERED: ENOXAPARIN 30MG/0.3ML SYR SUBCUT SCH (09:00)
[2022-08-28] MEDS: PANTOPRAZOLE SODIUM 40 MG/VIAL IV SCH (09:02)
[2022-08-28] MEDS: BACLOFEN 10MG TABLET GT SCH ×3 (09:02→17:22)
[2022-08-28] MEDS: LISINOPRIL 5MG TABLET PO SCH (09:02)
[2022-08-28] MEDS: CARVEDILOL 3.125 MG TABLET GT SCH ×2 (09:03→21:46)
[2022-08-28] MEDS: NEOMY SULF/BACITRAC ZN/POLY OINT 28GM TOP SCH ×2 (09:05→21:47)
[2022-08-28] MEDS: MICONAZOLE NITRATE 2% OINT 71GM TOP SCH ×2 (09:06→21:46)
[2022-08-28] MEDS: LEVOFLOXACIN 500MG PREMIX 100 ML IV SCH (10:34)
[2022-08-28] MEDS ORDERED: FLUCONAZOLE 200 MG/100ML BAG 100 ML IV SCH (12:00)
[2022-08-28] MEDS ORDERED: FLUCONAZOLE 200MG/100ML PREMIX IV NR (12:00)
[2022-08-29] VITALS (22 sets, daily range): BP systolic 108–142; BP diastolic 58–89
[2022-08-29] MEDS: METOCLOPRAMIDE HCL 10MG/2ML VIAL IV SCH ×4 (00:04→17:36)
[2022-08-29] MEDS: ALBUTEROL (0.083%) 2.5MG/3ML NEB HHN SCH ×6 (00:12→20:23)
[2022-08-29] MEDS: ACETYLCYSTEINE 200MG/ML 20% VIAL 4ML INH SCH ×3 (00:13→16:27)
[2022-08-29] MEDS: METRONIDAZOLE 500 MG PREMIX 100 ML IV SCH ×3 (01:52→17:37)
[2022-08-29] MEDS: METHYLPREDNISOLONE SOD SUCC 40 MG/ML VIAL IV SCH (05:10)
[2022-08-29 05:54] LABS: HEMATOCRIT. 38.5 % (42.0-52.0); HEMOGLOBIN. 12.9 g/dL (14.0-18.0); MEAN CORPUSCULAR HEMOGLOBIN 30.8 pg (28.0-32.0); MEAN CORPUSCULAR VOLUME 91.6 fL (80.0-94.0); MEAN PLATELET VOLUME 10.6 fl (7.4-10.4); PLATELET 115 x1000/uL (130-400); RED CELL DISTRIBUTION WIDTH 14.1 % (11.6-14.6)
[2022-08-29 06:17] LABS: CHLORIDE 103 mEq/L (98-107)
[2022-08-29 06:35] LABS: PHOSPHORUS 2.3 mg/dL (2.5-4.9)
[2022-08-29] MEDS: BACLOFEN 10MG TABLET GT SCH ×3 (10:13→17:36)
[2022-08-29] MEDS: LISINOPRIL 5MG TABLET PO SCH (10:13)
[2022-08-29] MEDS: CARVEDILOL 3.125 MG TABLET GT SCH ×2 (10:13→21:43)
[2022-08-29] MEDS: PANTOPRAZOLE SODIUM 40 MG/VIAL IV SCH (10:13)
[2022-08-29] MEDS: MICONAZOLE NITRATE 2% OINT 71GM TOP SCH ×2 (10:14→21:43)
[2022-08-29] MEDS: NEOMY SULF/BACITRAC ZN/POLY OINT 28GM TOP SCH ×2 (10:14→21:44)
[2022-08-29] MEDS ORDERED: FLUCONAZOLE 100 MG/50ML BAG 50 ML IV SCH (11:00)
[2022-08-29] MEDS: LEVOFLOXACIN 500MG PREMIX 100 ML IV SCH (13:08)
[2022-08-29] MEDS: FLUCONAZOLE 100MG/50ML in BAG IV SCH (17:37)
[2022-08-29] MEDS ORDERED: SODIUM PHOS,M-BASIC-D-BASIC 20 MM in DEXT 5% WATER 243.3333 ML IV NR (22:00)
[2022-08-30] VITALS (15 sets, daily range): BP systolic 108–156; BP diastolic 56–78
[2022-08-30] MEDS: ACETYLCYSTEINE 200MG/ML 20% VIAL 4ML INH SCH ×4 (00:02→17:19)
[2022-08-30] MEDS: ALBUTEROL (0.083%) 2.5MG/3ML NEB HHN SCH ×6 (00:03→21:07)
[2022-08-30] MEDS: METOCLOPRAMIDE HCL 10MG/2ML VIAL IV SCH ×4 (00:42→19:09)
[2022-08-30] MEDS: METRONIDAZOLE 500 MG PREMIX 100 ML IV SCH ×3 (02:46→18:00)
[2022-08-30 07:43] LABS: CHLORIDE 101 mEq/L (98-107)
[2022-08-30] MEDS: LISINOPRIL 5MG TABLET PO SCH (09:00)
[2022-08-30] MEDS: CARVEDILOL 3.125 MG TABLET GT SCH (09:00)
[2022-08-30] MEDS: PREDNISONE 20MG TABLET PO SCH (09:22)
[2022-08-30] MEDS: PANTOPRAZOLE SODIUM 40 MG/VIAL IV SCH (09:24)
[2022-08-30] MEDS: BACLOFEN 10MG TABLET GT SCH ×3 (09:24→19:09)
[2022-08-30] MEDS: MICONAZOLE NITRATE 2% OINT 71GM TOP SCH (09:25)
[2022-08-30] MEDS: NEOMY SULF/BACITRAC ZN/POLY OINT 28GM TOP SCH (09:25)
[2022-08-30 10:43] LABS: PLATELET ESTIMATE SLIGHTLY DECREASED
[2022-08-30] MEDS: LEVOFLOXACIN 500MG PREMIX 100 ML IV SCH (11:21)
[2022-08-30] MEDS: FLUCONAZOLE 100MG/50ML in BAG IV SCH (11:21)
[2022-08-31] VITALS (18 sets, daily range): BP systolic 101–141; BP diastolic 42–87
[2022-08-31] MEDS: ALBUTEROL (0.083%) 2.5MG/3ML NEB HHN SCH ×5 (00:38→16:39)
[2022-08-31] MEDS: NEOMY SULF/BACITRAC ZN/POLY OINT 28GM TOP SCH ×2 (00:43→10:52)
[2022-08-31] MEDS: MICONAZOLE NITRATE 2% OINT 71GM TOP SCH ×2 (00:44→09:00)
[2022-08-31] MEDS: CARVEDILOL 3.125 MG TABLET GT SCH ×2 (00:45→10:49)
[2022-08-31] MEDS: METOCLOPRAMIDE HCL 10MG/2ML VIAL IV SCH ×4 (00:45→18:12)
[2022-08-31] MEDS: METRONIDAZOLE 500 MG PREMIX 100 ML IV SCH ×2 (01:53→11:16)
[2022-08-31 08:17] LABS: CHLORIDE 102 mEq/L (98-107)
[2022-08-31] MEDS: LISINOPRIL 5MG TABLET PO SCH (09:00)
[2022-08-31] MEDS: ACETYLCYSTEINE 200MG/ML 20% VIAL 4ML INH SCH ×2 (09:18→16:39)
[2022-08-31] MEDS: PREDNISONE 20MG TABLET PO SCH (10:49)
[2022-08-31] MEDS: PANTOPRAZOLE SODIUM 40 MG/VIAL IV SCH (10:49)
[2022-08-31] MEDS: BACLOFEN 10MG TABLET GT SCH ×3 (10:51→18:12)
[2022-08-31] MEDS: LEVOFLOXACIN 500MG PREMIX 100 ML IV SCH (11:16)
[2022-08-31] MEDS: FLUCONAZOLE 100MG/50ML in BAG IV SCH (16:09)
[2022-08-31] MEDS ORDERED: *PATIENT'S OWN MEDICATION STORAGE XX SCH (19:15)
== END 2022-08-31 20:00 | disposition home or self-care (01) | DRG 870 ==
LOC: EDBEDREQSVC 14:12 → ER 14:34 → CVICU 16:39 → EDBEDREQ 16:41 → ENRESERV 19:42 → 5EST 08-29 15:15
PROVIDERS: ADMIT Internal Medicine; ATTEND Internal Medicine
PROC: 5A1955Z Respiratory Ventilation, Greater than 96 Consecutive Hours (ICD-10-PCS; 2022-08-16)
PROC: 0BH17EZ Insertion of Endotracheal Airway into Trachea, Via Natural or Artificial Opening (ICD-10-PCS; 2022-08-16)
PROC: 02HV33Z Insertion of Infusion Device into Superior Vena Cava, Percutaneous Approach (ICD-10-PCS; principal; 2022-08-17)
PROC: B548ZZA Ultrasonography of Superior Vena Cava, Guidance (ICD-10-PCS; 2022-08-17)
PROC: 4B02XSZ Measurement of Cardiac Pacemaker, External Approach (ICD-10-PCS; 2022-08-24)
DX: A41.9 Sepsis, unspecified organism (principal); J69.0 Pneumonitis due to inhalation of food and vomit; I50.23 Acute on chronic systolic (congestive) heart failure; J96.01 Acute respiratory failure with hypoxia; K94.22 Gastrostomy infection; K56.609 Unspecified intestinal obstruction, unspecified as to partial versus complete obstruction; I42.9 Cardiomyopathy, unspecified; E87.20 Acidosis, unspecified; L03.90 Cellulitis, unspecified; D69.6 Thrombocytopenia, unspecified; E87.6 Hypokalemia; E83.39 Other disorders of phosphorus metabolism; K80.20 Calculus of gallbladder without cholecystitis without obstruction; E80.6 Other disorders of bilirubin metabolism; D64.9 Anemia, unspecified; M24.651 Ankylosis, right hip; R74.01 Elevation of levels of liver transaminase levels; R33.8 Other retention of urine; S91.119A Laceration without foreign body of unspecified toe without damage to nail, initial encounter; I11.0 Hypertensive heart disease with heart failure; I07.1 Rheumatic tricuspid insufficiency; Z87.820 Personal history of traumatic brain injury; Z95.828 Presence of other vascular implants and grafts; Z95.810 Presence of automatic (implantable) cardiac defibrillator; Z86.69 Personal history of other diseases of the nervous system and sense organs; X58.XXXA Exposure to other specified factors, initial encounter; Y93.89 Activity, other specified; Y92.89 Other specified places as the place of occurrence of the external cause; Y99.8 Other external cause status
CPT/HCPCS: 31500; 36415; 36600; 71045; 71250; 72170; 74018; 74176; 74177; 76770; 76937; 80048; 80053; 80076; 80202; 81003; 82375; 82550; 82553; 82607; 82728; 82746; 82805; 82977; 83540; 83550; 83605; 83735; 83880; 84100; 84145; 84439; 84443; 84478; 84484; 85025; 85027; 85044; 87070; 87077; 87186; 93005; 93306; 93923; 93970; 94002; 94003; 94640; 99285; A6261; C1725; C1893; C9113; J0692; J1450; J1650; J1940; J1956; J2060; J2250; J2543; J2704; J2765; J2920; J3010; J3370; J3480; J3490; J7030; J7050; J7060; J7512; J7608; Q9963; Q9967; A4315

== ENCOUNTER 2024-07-06 18:03 | Inpatient (IN) | payer OTHER, MEDICAID ==
[~2024-07-06] VITALS: Ht 182.9 cm; Wt 122.9 kg
[~2024-07-06 18:03] MED LIST changes: +AMIO100T4 GT; -AMIO100T4 PO; +BACL-141 GT; -BACL-141 MT; +CAPT12.53 GT; +CARV3.1242 GT; -CARV3.1242 MT
[2024-07-06 21:11] LABS: CLARITY URINE TURBID (CLEAR); COLOR URINE YELLOW (YELLOW); GLUCOSE URINE NEGATIVE (NEGATIVE); KETONES URINE NEGATIVE (NEGATIVE); LEUKOCYTE ESTERASE URINE 1+ (NEGATIVE); NITRITE URINE POSITIVE (NEGATIVE); OCCULT BLOOD URINE NEGATIVE (NEGATIVE); PH URINE >=9.0 (4.5-8.0); PROTEIN URINE 4+ (NEGATIVE); SPECIFIC GRAVITY URINE 1.019 (1.005-1.030)
[2024-07-06 21:28] LABS: TRIPLE PHOSPHATE CRYSTAL URINE 4+ /lpf
[2024-07-06 21:29] LABS: BACTERIA URINE 3+; RBC URINE 0-2 /hpf (0-2); SQUAMOUS EPITHELIAL CELL URINE FEW /lpf (RARE/1+)
[2024-07-06 21:55] LABS: HEMATOCRIT 53.2 % (42.0-52.0); HEMOGLOBIN 17.6 g/dL (14.0-18.0); MEAN CORPUSCULAR HEMOGLOBIN 31.2 pg (28.0-32.0); MEAN CORPUSCULAR HGB CONC 33.1 g/dL (31.0-37.0); MEAN CORPUSCULAR VOLUME 94.3 fL (80.0-94.0); PLATELET 51 x1000/uL (130-400); RED BLOOD CELL COUNT 5.64 mill/uL (4.7-6.1); RED CELL DISTRIBUTION WIDTH 15.1 % (11.6-14.6); WHITE BLOOD COUNT 10.1 x1000/uL (4.5-11.0)
[2024-07-06] MEDS: CEFTRIAXONE 1GM/50ML 50 ML IV NR (21:59)
[2024-07-06 22:00] LABS: CHLORIDE 105 mEq/L (98-107); POTASSIUM 5.4 mEq/L (3.5-5.1); SODIUM 136 mEq/L (136-145)
[2024-07-06 22:01] LABS: CALCIUM 9.1 mg/dL (8.7-10.4); CARBON DIOXIDE 26 mEq/L (21-32)
[2024-07-06 22:06] LABS: CREATININE 0.8 mg/dL (0.6-1.3); GLUCOSE 86 mg/dL (70-105); UREA NITROGEN BLOOD 13 mg/dL (9-23)
[2024-07-06] MEDS ORDERED: CLONIDINE 0.1MG TABLET PO PRN (23:30)
[2024-07-06] MEDS ORDERED: ONDANSETRON HCL 4MG/2ML INJ IV PRN (23:30)
[2024-07-06] MEDS ORDERED: MAGNESIUM/ALUMINUM HYDROXIDE/SIMETHICONE 30ML UDC PO PRN (23:30)
[2024-07-06] MEDS ORDERED: GUAIFENESIN 200MG/10ML SUGAR FREE UDC PO PRN (23:30)
[2024-07-06] MEDS ORDERED: DOCUSATE SODIUM 100MG CAPSULE PO PRN (23:30)
[2024-07-06] MEDS ORDERED: IPRATROPIUM/ALBUTEROL 0.5-3(2.5)MG/3ML NEB HHN PRN (23:30)
[2024-07-07] MEDS: DEXT 5%/0.45% NACL 1000ML 1,000 ML IV NR (01:30)
[2024-07-07] MEDS ORDERED: DOCUSATE SODIUM 100MG CAPSULE GT PRN (02:15)
[2024-07-07 04:14] LABS: BASOPHILS % 0.3 % (0.0-2.0); CHLORIDE 106 mEq/L (98-107); EOSINOPHILS % 0.3 % (0.0-5.0); HEMATOCRIT. 49.1 % (42.0-52.0); MEAN CORPUSCULAR HEMOGLOBIN 30.3 pg (28.0-32.0); MEAN CORPUSCULAR HGB CONC 32.6 g/dL (31.0-37.0); MEAN CORPUSCULAR VOLUME 92.9 fL (80.0-94.0); MEAN PLATELET VOLUME 10.4 fl (7.4-10.4); MONOCYTES % 9.1 % (2.0-8.0); NEUTROPHILS % 68.3 % (40.0-76.0); PLATELET 92 x1000/uL (130-400); POTASSIUM 4.1 mEq/L (3.5-5.1); RED BLOOD CELL COUNT 5.29 mill/uL (4.7-6.1); RED CELL DISTRIBUTION WIDTH 14.6 % (11.6-14.6); SODIUM 138 mEq/L (136-145); WHITE BLOOD COUNT 7.3 x1000/uL (4.5-11.0)
[2024-07-07 04:15] LABS: CALCIUM 8.8 mg/dL (8.7-10.4); CARBON DIOXIDE 28 mEq/L (21-32)
[2024-07-07 04:20] LABS: CREATININE 0.8 mg/dL (0.6-1.3); GLUCOSE 107 mg/dL (70-105); TRIGLYCERIDE 53 mg/dL (0-150); UREA NITROGEN BLOOD 14 mg/dL (9-23)
[2024-07-07 04:21] LABS: LDL CHOLESTEROL 83 mg/dL (5-100)
[2024-07-07 04:22] LABS: CHOLESTEROL 127 mg/dL (<200); HDL CHOLESTEROL 36 mg/dL (>55)
[2024-07-07 04:25] LABS: THYROID STIMULATING HORMONE 2.22 uIU/mL (0.55-4.78)
[2024-07-07] MEDS ORDERED: CLONIDINE 0.1MG TABLET GT PRN (05:30)
[2024-07-07] MEDS ORDERED: SODIUM POLYSTYRENE SULFONATE 15 G/60 ML BOT PO ONE (06:45)
[2024-07-07] MEDS: CEFTRIAXONE 1GM/50ML 50 ML IV SCH (09:02)
[2024-07-07] MEDS: AMIODARONE 200MG TABLET GT SCH ×2 (09:02→21:28)
[2024-07-07] MEDS: CARVEDILOL 3.125 MG TABLET GT SCH (09:02)
[2024-07-07] MEDS: BACLOFEN 10MG TABLET GT SCH (09:02)
[2024-07-07] MEDS: PANTOPRAZOLE SODIUM 40 MG/VIAL IV SCH (09:02)
[2024-07-07] MEDS: LISINOPRIL 5MG TABLET GT SCH (09:03)
[2024-07-07 14:40] VITALS: BP 118/79; PULSE 60; RESP 18; TEMP 36.7516
[2024-07-07 16:00] VITALS: BP 114/76; PULSE 61; RESP 18; TEMP 36.50292; O2SAT 95
[2024-07-08] VITALS (7 sets, daily range): BP systolic 105–129; BP diastolic 62–90; PULSE 60–86; RESP 18–20; TEMP 36.16956–36.78072; O2SAT 94–100
[2024-07-08] MEDS: CEFTRIAXONE 1GM/50ML 50 ML IV SCH (10:18)
[2024-07-08 11:20] LABS: CHLORIDE 106 mEq/L (98-107); POTASSIUM 4.3 mEq/L (3.5-5.1); SODIUM 136 mEq/L (136-145)
[2024-07-08 11:21] LABS: CALCIUM 8.7 mg/dL (8.7-10.4); CARBON DIOXIDE 24 mEq/L (21-32)
[2024-07-08 11:26] LABS: CREATININE 0.7 mg/dL (0.6-1.3); GLUCOSE 102 mg/dL (70-105); UREA NITROGEN BLOOD 8 mg/dL (9-23)
[2024-07-08 11:29] LABS: BASOPHILS % 0.6 % (0.0-2.0); EOSINOPHILS % 1.2 % (0.0-5.0); HEMATOCRIT. 47.3 % (42.0-52.0); HEMOGLOBIN. 15.5 g/dL (14.0-18.0); LYMPHOCYTES % 18.7 % (20.0-50.0); MEAN CORPUSCULAR HEMOGLOBIN 30.6 pg (28.0-32.0); MEAN CORPUSCULAR HGB CONC 32.8 g/dL (31.0-37.0); MEAN CORPUSCULAR VOLUME 93.5 fL (80.0-94.0); MONOCYTES % 12.9 % (2.0-8.0); NEUTROPHILS % 66.6 % (40.0-76.0); RED BLOOD CELL COUNT 5.06 mill/uL (4.7-6.1); RED CELL DISTRIBUTION WIDTH 14.7 % (11.6-14.6); WHITE BLOOD COUNT 8.1 x1000/uL (4.5-11.0)
[2024-07-08 11:38] LABS: DIFFERENTIAL COMMENT 1
[2024-07-08] MEDS ORDERED: NITR-87 MT (12:27)
[2024-07-08 14:09] LABS: PLATELET 89 x1000/uL (130-400)
== END 2024-07-08 21:03 | disposition home or self-care (01) | DRG 690 ==
LOC: ER 18:03 → 5WST 21:14 → EDBEDREQ 21:26 → EDBEDREQTM 21:26 → 6EST 07-07 10:40 → 7WST 07-07 22:32
PROVIDERS: ADMIT Internal Medicine; ATTEND Internal Medicine
DX: N39.0 Urinary tract infection, site not specified (principal); I50.22 Chronic systolic (congestive) heart failure; I42.8 Other cardiomyopathies; E87.5 Hyperkalemia; R33.9 Retention of urine, unspecified; D69.6 Thrombocytopenia, unspecified; M62.838 Other muscle spasm; L89.892 Pressure ulcer of other site, stage 2; I25.2 Old myocardial infarction; Z74.01 Bed confinement status; Z79.899 Other long term (current) drug therapy; Z93.3 Colostomy status; Z95.810 Presence of automatic (implantable) cardiac defibrillator
CPT/HCPCS: 36415; 80048; 80061; 81003; 84145; 84439; 84443; 85025; 85027; 93005; 99285; J0696; J2470